=== PATIENT | male | born 1965 | race Caucasian/White ===

== ENCOUNTER 2023-10-16 19:57 | Emergency (ER) | payer OTHER, SELFPAY ==
[2023-10-16] VITALS (10 sets, daily range): BP systolic 120–159; BP diastolic 78–85; PULSE 63–76; RESP 12–19; TEMP 36.9; O2SAT 96–100; BMI 25.7
--- NOTE | 2023-10-16 19:59 | DI.RAD.S_ITS ---
PROCEDURE: XR CHEST 1V INDICATIONS: chest pain TECHNIQUE: One view of the chest was acquired. COMPARISON: None. FINDINGS: Surgical changes and devices: None. Lungs and pleura: Lungs are clear. No pleural effusions or pneumothorax. Mediastinum: Mediastinal contours appear normal. Heart size is normal. Bones and chest wall: No suspicious bony lesions. Overlying soft tissues appear unremarkable. IMPRESSION: No acute cardiopulmonary abnormality is seen. Dictated by: Rafael Kumari M.D. on 10/16/2023 at 20:27 Approved by: Rafael Kumari M.D. on 10/16/2023 at 20:28
--- NOTE | 2023-10-16 20:09 | EKG_ITS ---
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
[2023-10-16 20:29] LABS: Add Manual Diff / Slide Review NO; Basophils Absolute Auto 0 /uL (0-100); Basophils Percent Auto 0.9 % (0-2); Eosinophils Absolute Auto 200 /uL (0-450); Eosinophils Percent Auto 4.9 % (2-4); Hemoglobin 14.9 g/dL (13.5-17.5); Lymphocytes Absolute Auto 1400 /uL (1100-4500); Mean Corpuscular HGB Conc 34.6 % (30-36); Mean Corpuscular Hemoglobin 32.2 PG (26-34); Monocytes Absolute Auto 600 /uL (0-900); Monocytes Percent Auto 13.2 % (3-14); Neutrophils Absolute Auto 2300 /uL (1500-7000); Platelet Count 193 X10^3/uL (150-400); Red Blood Cell Count 4.62 X10^6/uL (4.5-5.9); White Blood Cell Count 4.6 X10^3/uL (4.5-11.0)
[2023-10-16 20:34] LABS: Prothrombin Time 10.9 SECONDS (9.4-12.5)
[2023-10-16 20:36] LABS: PTT Partial Thromboplastin Tim 30 SECONDS (25.1-36.5)
[2023-10-16 20:38] LABS: Alanine Aminotransferase 27 IU/L (<50); Albumin 4.2 g/dL (3.5-5.0); Albumin Globulin Ratio 1.4 (1.0-2.8); Alkaline Phosphatase 60 U/L (38-126); Aspartate Aminotransferase 30 IU/L (17-59); BUN Creatinine Ratio 17.8 (6-22); Bilirubin Total 1.1 mg/dL (0.2-1.3); Blood Urea Nitrogen 16 mg/dL (9-20); Calcium 9.1 mg/dL (8.4-10.2); Carbon Dioxide 29 mmol/L (22-32); Chloride 105 mmol/L (98-107); Creatine Kinase 101 U/L (55-170); Estimated Glomerular Filt Rate > 60 mL/min (>60); Globulin 3.1 g/dL (1.7-4.1); Glucose 88 mg/dL (70-100); HEMOLYSIS 23 (0-50); Lipase 157 U/L (23-300); Magnesium 2.5 mg/dL (1.6-2.3); Potassium 4.1 mmol/L (3.4-5.1); Sodium 136 mmol/L (137-145); Total Protein 7.3 g/dL (6.3-8.2)
[2023-10-16 20:49] LABS: NT-proBNP (BNP-Adult 18+) < 20 pg/mL (<125); Troponin I < 0.012 ng/mL (0.01-0.034)
--- NOTE | 2023-10-16 22:19 | EKG_ITS ---
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
--- NOTE | 2023-10-16 22:34 | ED.CHESTPAIN ---
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 Patient states felt weird in his chest but also describes little bit of epigastric discomfort. [place] lightheaded and some nausea. Checked his blood pressure had a systolic in the 80s, continued to feel similar on and off throughout the day. Describes some palpitations in his chest, noted his heart rate was elevated at 115 at 1 point had some persistently low blood pressures throughout the day but improved as the day went by. Patient states he has had a little bit of nausea some epigastric discomfort. He denies fevers or chills no cold cough or congestion. Did not have syncope but did feel lightheaded. No vomiting. Denies any abdominal pain, no issues with bowel movements or urination. States he has had a little bit of decreased appetite. States he is on hypertensive medications on losartan daily in the morning. Tamsulosin daily and takes sildenafil Monday and Monday in the evening. He notes he has had some weight loss but checks his blood pressure regularly and states he has not had any significant lows or highs. Denies any prior surgeries no prior cardiac catheterization. States allergic to penicillin. No tobacco, alcohol or recreational drugs. States family history had a paternal grandfather with cardiac issues but no other close family history. Review of Systems Review of Systems ROS Unobtainable: All systems reviewed & are unremarkable except as noted in HPI and below Patient History Social History Smoking Status: Never smoker Smoking Status: Never smoker Substance Use Type: does not use Exam Narrative Exam Narrative: GENERAL: Alert and oriented x three, well-appearing male in mild distress. HEENT: Head normocephalic, atraumatic, EOMI, pupils reactive, face symmetric, moist mucous membranes NECK: Supple, full range of motion CARDIOVASCULAR: Regular rate and rhythm without murmurs, rubs or gallops. No JVD. No edema bilateral lower extremities. RESPIRATORY: Breath sounds equal bilaterally, no wheezes rales or rhonchi. No tachypnea or accessory muscle use. ABDOMEN: Soft, nontender. Normoactive bowel sounds all 4 quadrants. No guarding or rebound, rigidity, no mass, no pulsatile mass or bruit. : No CVA tenderness EXTREMITIES: Normal range of motion, no clubbing or edema. Neurovascularly intact NEUROLOGICAL: Cranial nerves II through XII grossly intact. Moving all extremities SKIN: Warm, dry, no petechiae, no rashes or lesions. Initial Vital Signs Initial Vital Signs: Vital Signs Pulse Oximetry 98 10/16/23 20:02 Course Orders Ordered: ED Orders 10/16/23 22:15 EKG-12 Lead Stat 10/16/23 22:16 Troponin I Stat Discontinued Medications Aspirin (Aspirin 81 Mg Chew Tab) 324 mg PO NOW ONE Stop: 10/16/23 20:00 Last Admin: 10/16/23 23:13 Dose: Not Given Documented By: AB Vital Signs Vital signs: Vital Signs - 8 hr 10/16/23 22:30 10/16/23 22:30 10/16/23 23:00 Pulse Rate 65 63 Respiratory Rate 15 12 Blood Pressure 121/81 Pulse Oximetry 97 96 Oxygen Delivery Method Room Air 10/16/23 23:00 Pulse Rate Respiratory Rate Blood Pressure 122/78 Pulse Oximetry Oxygen Delivery Method MDM - Chest Pain Lab Data 10/16/23 20:12 10/16/23 20:12 Labs: Lab Results 10/16/23 10/16/23 Range/Units 20:12 22:16 WBC 4.6 (4.5-11.0) X10^3/uL RBC 4.62 (4.5-5.9) X10^6/uL Hgb 14.9 (13.5-17.5) g/dL Hct 43.0 (41-53) % MCV 93.0 (80-100) fL MCH 32.2 (26-34) PG MCHC 34.6 (30-36) % RDW 14.0 (11.6-14.8) % Plt Count 193 (150-400) X10^3/uL Neut % (Auto) 50.0 (50-75) % Lymph % (Auto) 31.0 (25-40) % [place] % (Auto) 13.2 (3-14) % Eos % (Auto) 4.9 H (2-4) % Baso % (Auto) 0.9 (0-2) % Neut # (Auto) 2300 (1296-4076) /uL Lymph # (Auto) 1400 (7547-7880) /uL [place] # (Auto) 600 (0-900) /uL Eos # (Auto) 200 (0-450) /uL Baso # (Auto) 0 (0-100) /uL PT 10.9 (9.4-12.5) SECONDS INR 1.0 (0.9-1.3) APTT 30 (25.1-36.5) SECONDS Sodium 136 L (137-145) mmol/L Potassium 4.1 (3.4-5.1) mmol/L Chloride 105 (98-107) mmol/L Carbon Dioxide 29 (22-32) mmol/L BUN 16 (9-20) mg/dL Creatinine 0.90 (0.66-1.25) mg/dL Estimated GFR > 60 (>60) mL/min BUN/Creatinine Ratio 17.8 (6-22) Glucose 88 (70-100) mg/dL Calcium 9.1 (8.4-10.2) mg/dL Magnesium 2.5 H (1.6-2.3) mg/dL Total Bilirubin 1.1 (0.2-1.3) mg/dL AST 30 (17-59) IU/L ALT 27 (<50) IU/L Alkaline Phosphatase 60 (38-126) U/L Total Creatine Kinase 101 (55-170) U/L Troponin I < 0.012 < 0.012 (0.01-0.034) ng/mL NT-Pro-B Natriuret Pep < 20 (<125) pg/mL Total Protein 7.3 (6.3-8.2) g/dL Albumin 4.2 (3.5-5.0) g/dL Globulin 3.1 (1.7-4.1) g/dL Albumin/Globulin Ratio 1.4 (1.0-2.8) Lipase 157 (23-300) U/L Imaging Data Chest x-ray: Radiologist's Impression: [address] [address] XRay Report Signed Patient: Darron Moss MR#: [id number] : 1965 Acct:[id number] Age/Sex: 58 / M Date of Service: 10/16/23 Loc: ED Accession Number: [id number] Procedure: XR chest 1V Ordering Provider: Pascale Carlson D.O. PROCEDURE: XR CHEST 1V INDICATIONS: chest pain TECHNIQUE: One view of the chest was acquired. COMPARISON: None. FINDINGS: Surgical changes and devices: None. Lungs and pleura: Lungs are clear. No pleural effusions or pneumothorax. Mediastinum: Mediastinal contours appear normal. Heart size is normal. Bones and chest wall: No suspicious bony lesions. Overlying soft tissues appear unremarkable. IMPRESSION: No acute cardiopulmonary abnormality is seen. Dictated by: Rafael Kumari M.D. on 10/16/2023 at 20:27 Approved by: Rafael Kumari M.D. on 10/16/2023 at 20:28 ECG Data Attestation: I personally reviewed and interpreted this ECG as follows: Prior ECG tracings: not available for review Interpretation: EKG shows sinus rhythm occasional PVC rate of 75 [place] 166 QRS of 96 QTC 457, no acute ST elevation depression noted. No priors available for comparison. EKG 2. Shows sinus bradycardia rate of 59 [place] 168 QRS of 94 QTC 439, no acute ST elevation depression. Patient has no other acute changes appreciated. MDM Narrative Medical decision making narrative: 50-year-old male history of hypertension on several medications noted to feel lightheaded some nausea describes some episodes gastric discomfort and a little bit of chest discomfort and palpitations. Noticed blood pressure was low when he was having palpitations and fast heart rate earlier during the day. He states he does feel improved now. Labs show white count of 4.6 hemoglobin of 14 platelets of 193. Coags are negative sodium is 136 potassium is 4.1 chloride 105 CO2 is 29 BUN 16 creatinine 0.9 glucose 88, Mag is 2.5, bilirubin is 1.1 AST ALT are 3027 alk-phos 60 lipase is negative at 157. Initial troponins less than 0.012. Repeated troponin is less than 0.012 Chest x-ray shows no acute change EKG shows sinus and on repeat sinus bradycardia but no acute ST changes. No priors for comparison. Patient continues to be asymptomatic, feels comfortable returning home. Discussed findings from today. Discussed return precautions. Discharge Plan Departure Patient Disposition: Home Clinical Impression: Atypical chest pain Activity Restrictions/Additional Instructions: I hope you continue to feel improved, if you have any other new changes please return. Please return for new or worsening symptoms, passing out, new or worsening chest pain, shortness of breath, persistent vomiting, new swelling in your extremities, diaphoresis or sweatiness or other new or concerning changes. Referrals: Miscellaneous,Doctor, MD [Primary Care Provider] - Stand Alone Forms: Patient Portal/API
[2023-10-16 23:20] LABS: Troponin I < 0.012 ng/mL (0.01-0.034)
== END 2023-10-16 23:38 | disposition home or self-care (01) ==
PROVIDERS: Emergency Provider Emergency Medicine
DX: R07.89 Other chest pain (principal); R11.0 Nausea; R00.1 Bradycardia, unspecified
CPT/HCPCS: 36415; 71045; 80053; 82550; 83690; 83735; 83880; 84484; 85025; 85610; 85730; 93005; 99283; 99284